=== PATIENT | male | born 1970 | race Caucasian/White ===

== ENCOUNTER → 2016-12-01 | Outpatient (CLI) | payer OTHER ==
[~2016-12-01] MED LIST: CETI5TAB2 PO; CLARITHROMYCIN PO; COUM2.5T11 PO; FLAX1200 PO; FLUTISP; HUMI40KI2 SC; HYDR200T3 PO; LISI10TA4 PO; MELO15TA4 PO; MILK140C PO; MULT1TAB18 PO; NATU400T PO; OMEP20CA3 PO; OXYC-299 PO; PERC5TAB6 PO; SYNT100T PO; TRAM50TA2 PO; VITATAB11 PO
== END ==
LOC: M RAD 07:38
PROVIDERS: ATTEND Internal Medicine Gastroenterology
DX: K74.60 Unspecified cirrhosis of liver (principal)

== ENCOUNTER → 2017-04-29 | Outpatient (CLI) | payer OTHER ==
--- NOTE | 2017-04-30 06:45 | REP ---
Clinical: Cirrhosis. Comparison: 12/01/2016. Technique: Real time kim scale ultrasound examination using curved array transducer. Findings: The liver is increased in echogenicity with decreased through transmission compatible with fatty infiltration and hepatocellular disease. No focal hepatic lesion identified. The pancreas is incompletely evaluated due to interposed bowel gas but visualized portions appear normal. The gallbladder is unremarkable and without gallstones, wall thickening, or pericholecystic fluid. No biliary ductal dilatation is appreciated and the common bile duct measures 3.8 mm diameter. Right kidney is normal in reniform shape without hydronephrosis and measures 12.6 x 5.8 x 5.3 cm. No ascites in the visualized right upper quadrant. Impression: Findings compatible with hepatocellular disease. No focal hepatic lesion identified. Signed by Justus Lincoln MD 04/30/2017 06:36 A
== END ==
LOC: M RAD 09:03
PROVIDERS: ATTEND Internal Medicine Gastroenterology
DX: K74.60 Unspecified cirrhosis of liver (principal)

== ENCOUNTER → 2017-11-04 | Outpatient (CLI) | payer OTHER ==
[~2017-11-04] MED LIST changes: -COUM2.5T11 PO; +COUM2.5T17 PO; +OXYC-141 PO; -OXYC-299 PO; +PERC5TAB12 PO; -PERC5TAB6 PO
--- NOTE | 2017-11-04 20:30 | REP ---
Clinical: History of cirrhosis. Comparison: 04/29/2017. Technique: Oliveira scale ultrasound using curved array transducer. Findings: The liver demonstrates mildly increased echogenicity suggesting fatty infiltration and/or hepatocellular disease. No focal hepatic lesions are identified. Limited evaluation of the pancreas is unremarkable. The gallbladder is normal without gallstones, wall thickening or pericholecystic fluid. No biliary ductal dilatation is appreciated, and the common bile duct measures 4.2 mm mm diameter. The right kidney is normal in reniform shape without hydronephrosis and measures 12.8 x 5.6 x 4.8 cm. No ascites. Visualized portions of the abdominal aorta normal. Impression: Mild fatty infiltration to the liver and/or hepatocellular disease. Otherwise normal right upper quadrant ultrasound examination. Signed by Justus Lincoln MD 11/04/2017 05:21 P
== END ==
LOC: M RAD 08:55
PROVIDERS: ATTEND Internal Medicine Gastroenterology
DX: K74.60 Unspecified cirrhosis of liver (principal)